=== PATIENT | female | born 1975 | race American Indian/Alaskan Native ===

== ENCOUNTER 2017-06-22 13:20 | Inpatient (IN) | payer MEDICAID, OTHER ==
[2017-06-22 14:42] LABS: HCG Qualitative,Urine Negative (Negative)
[2017-06-22 14:43] LABS: Bilirubin,Urine NEG (Negative); Blood,Urine NEG (Negative); Color,Urine Yellow (Yellow); Mucus,Urine FEW /HPF; Protein,Urine <15 mg/dL mg/dL (Negative); Urobilinogen,Urine < 2.0 mg/dL (<2.0)
[2017-06-22 15:13] LABS: Hematocrit 38.3 % (30.3-42.9); Hemoglobin 12.1 gm/dl (10.1-14.3); Mean Corpuscular HGB Conc 32 % (30-34); Mean Corpuscular Hemoglobin 28 pg (28-32); Mean Corpuscular Volume 89 fl (79-97); Platelet Count 255 K/mm3 (140-440); Red Blood Count 4.28 M/mm3 (3.65-5.03); Red Cell Distribution Width 16.5 % (13.2-15.2)
[2017-06-22] MEDS ORDERED: NORMODYNE IV ONE (15:24)
[2017-06-22 15:36] LABS: Alanine Aminotransferase 7 units/L (7-56); Albumin 4.4 g/dL (3.9-5); BUN/Creatinine Ratio 13; Blood Urea Nitrogen 12 mg/dL (7-17); Calcium 9.5 mg/dL (8.4-10.2); Hemolysis Index 6
[2017-06-22] MEDS ORDERED: APRESOLINE IV ONE (16:00)
[2017-06-22 16:05] LABS: Amphetamine Screen,Urine PRESUMPTIVE NEGATIVE; Benzodiazepines Screen,Urine PRESUMPTIVE NEGATIVE; Methadone Screen,Urine PRESUMPTIVE NEGATIVE; Opiate Screen,Urine PRESUMPTIVE NEGATIVE
--- NOTE | 2017-06-22 16:12 | Cat Scan Report ---
FINAL REPORT EXAM: CT HEAD/BRAIN WO CON HISTORY: [place], HTN, slurred speech TECHNIQUE: Standard unenhanced CT of the head at 5.0 millimeter axial increments. PRIORS: None. FINDINGS: The ventricular system is normal in size and configuration. There is no evidence for parenchymal volume loss. There is a remote lacunar infarct in the left internal limb of the internal capsule and the right thalamus. Mild small vessel ischemic changes are present in the right centrum semiovale posteriorly. There is no evidence for mass lesion, mass effect, midline shift, acute intracranial hemorrhage, or acute ischemia/ infarction. No evidence for acute skull fracture is seen. No abnormality in the overlying scalp soft tissues is seen. Visualized paranasal sinuses are clear. IMPRESSION: Small-vessel ischemic changes and remote lacunar infarcts. No acute intracranial process noted.
--- NOTE | 2017-06-22 16:24 | Emergency Department Report ---
ED Neuro Deficit HPI - General Chief Complaint: High BP Stated Complaint: HTN Time Seen by Provider: 06/22/17 15:08 Source: patient, EMS Mode of arrival: Ambulatory Limitations: No Limitations - History of Present Illness Initial Comments: 42 yo female with past medical history -induced hypertension presents to the hospital with complaints of ongoing headaches with left-sided numbness/ weakness with worsening speech and balance with ambulation since yesterday. Patient was diagnosed with hypertension during her in 2013 but has not followed up or been on medication since. She reports intermittent headaches for at least 3 months with left-sided arm and leg numbness that has been constant. Yesterday she developed abnormal speech at which she feels like she sounds drunk as well as stumbling when trying to ambulate. Patient complains of a left-sided 9/10 pulsating headache. She denies nausea, vomiting , blurred vision, chest pain, or shortness of breath. PMD: None - Related Data Home Medications: Home Medications Medication Instructions Recorded Confirmed Last Taken No Known Home Medications [No 06/22/17 06/22/17 Unknown Reported Home Medications] Allergies/Adverse Reactions: Allergies Allergy/AdvReac Type Severity Reaction Status Date / Time No Known Allergies Allergy Unverified 08/23/13 13:42 ED Review of Systems ROS: Stated complaint: HTN Other details as noted in HPI Comment: All other systems reviewed and negative ED Past Medical Hx - Past Medical History Hx Congestive Heart Failure: No Hx Diabetes: No Hx Asthma: No Hx COPD: No - Surgical History Past Surgical History?: No Additional Surgical History: - Social History Smoking Status: Current Every Day Smoker Substance Use Type: None, Marijuana - Medications Home Medications: Home Medications Medication Instructions Recorded Confirmed Last Taken Type No Known Home Medications [No 06/22/17 06/22/17 Unknown History Reported Home Medications] ED Neuro Physical Exam - General Limitations: No Limitations Suspected Stroke: Yes - NIHSS Assessment Interval: Baseline 1a. Level of Consciousness: alert 1b. LOC Questions: answers correctly 1c. LOC Commands: performs tasks correctly 2. Best Gaze: normal 3. Visual: no visual loss 4. Facial Palsy: normal symmetrical movement 5b. Motor Arm Right: no drift 5a. Motor Arm Left: no drift 6a. Motor Leg Left: drift 6b. Motor Leg Right: no drift 7. Limb Ataxia: absent 8. Sensory: mild/moderate sensory loss (left) 9. Best Language: no aphasia 10. Dysarthria: mild/moderate dysarthria 11. Extinction/Inattention: no abnormality Total Score: 3 Stroke Severity: Minor Stroke - Other Other exam information: General: No limitations, patient is alert in no acute distress Head exam: Atraumatic, normocephalic Eyes exam: Normal appearance, pupils equal reactive to light, extraocular movements intact ENT: Moist mucous membrane, normal oropharynx Neck exam: Normal inspection, full range of motion, no meningismus nontender Respiratory exam: Clear to auscultation bilateral, no wheezes, rales, crackles Cardiovascular: Normal rate and rhythm, normal heart sounds Abdomen: Soft, nondistended, and nontender, with normal bowel sounds, no rebound, or guarding Extremity: Full range of motion normal inspection no deformity Back: Normal Inspection, full range of motion, no tenderness Neurologic: Alert, oriented x3, see NIH stroke scale Psychiatric: normal affect, normal mood Skin: Warm, dry, intact ED Course Vital Signs 06/22/17 06/22/17 06/22/17 13:56 15:13 15:16 Temperature 98 F Pulse Rate 66 58 L Respiratory 18 12 Rate Blood Pressure 203/137 194/122 194/122 O2 Sat by Pulse 99 99 100 Oximetry 06/22/17 06/22/17 06/22/17 15:30 15:49 16:00 Temperature Pulse Rate 59 L 55 L Respiratory 11 L 11 L Rate Blood Pressure 201/123 201/123 201/119 O2 Sat by Pulse 99 100 100 Oximetry 06/22/17 06/22/17 06/22/17 16:15 16:30 16:45 Temperature Pulse Rate 70 69 77 Respiratory 17 13 15 Rate Blood Pressure 205/130 204/124 209/129 O2 Sat by Pulse 100 100 100 Oximetry 06/22/17 17:00 Temperature Pulse Rate 80 Respiratory 13 Rate Blood Pressure 196/123 O2 Sat by Pulse 99 Oximetry - Reevaluation(s) Reevaluation #1: 06/22/17 17:16 patient received IV hydralazine and without any improvement in her blood pressure. Cardene drip ordered. Aspirin ordered after negative CT for hemorrhage. Patient required admission to the hospital. - Lab Data Result diagrams: 06/22/17 14:46 06/22/17 14:46 Lab Results 06/22/17 06/22/17 06/22/17 Range/Units 14:21 14:46 14:46 WBC 5.0 (4.5-11.0) K/mm3 RBC 4.28 (3.65-5.03) M/mm3 Hgb 12.1 (10.1-14.3) gm/dl Hct 38.3 (30.3-42.9) % MCV 89 (79-97) fl MCH 28 (28-32) pg MCHC 32 (30-34) % RDW 16.5 H (13.2-15.2) % Plt Count 255 (140-440) K/mm3 Sodium 138 (137-145) mmol/L Potassium 3.5 L (3.6-5.0) mmol/L Chloride 100.6 (98-107) mmol/L Carbon Dioxide 25 (22-30) mmol/L Anion Gap 16 mmol/L BUN 12 (7-17) mg/dL Creatinine 0.9 (0.7-1.2) mg/dL Estimated GFR > 60 ml/min BUN/Creatinine Ratio 13 % Glucose 85 (65-100) mg/dL Calcium 9.5 (8.4-10.2) mg/dL Total Bilirubin < 0.20 (0.1-1.2) mg/dL AST 17 (5-40) units/L ALT 7 (7-56) units/L Alkaline Phosphatase 80 (35-129) units/L Troponin T < 0.010 (0.00-0.029) ng/mL Total Protein 8.1 (6.3-8.2) g/dL Albumin 4.4 (3.9-5) g/dL Albumin/Globulin Ratio 1.2 % Urine Color Yellow (Yellow) Urine Turbidity Clear (Clear) Urine pH 6.0 (5.0-7.0) Ur Specific [place] 1.010 (1.003-1.030) Urine Protein <15 mg/dl (Negative) mg/dL Urine Glucose (UA) Neg (Negative) mg/dL Urine Ketones Neg (Negative) mg/dL Urine Blood Neg (Negative) Urine Nitrite Neg (Negative) Ur Reducing Substances Not Reportable Urine Bilirubin Neg (Negative) Urine Ictotest Not Reportable Urine Urobilinogen < 2.0 (<2.0) mg/dL Ur Leukocyte Esterase Neg (Negative) Urine WBC (Auto) 1.0 (0.0-6.0) /HPF Urine RBC (Auto) 1.0 (0.0-6.0) /HPF U Epithel Cells (Auto) 3.0 (0-13.0) /HPF Urine Mucus Few /HPF Urine HCG, Qual Negative (Negative) Urine Opiates Screen Urine Methadone Screen Ur Barbiturates Screen Ur Phencyclidine Scrn Ur Amphetamines Screen U Benzodiazepines Scrn Urine Cocaine Screen U Marijuana (THC) Screen Drugs of Abuse Note 06/22/17 Range/Units Unknown WBC (4.5-11.0) K/mm3 RBC (3.65-5.03) M/mm3 Hgb (10.1-14.3) gm/dl Hct (30.3-42.9) % MCV (79-97) fl MCH (28-32) pg MCHC (30-34) % RDW (13.2-15.2) % Plt Count (140-440) K/mm3 Sodium (137-145) mmol/L Potassium (3.6-5.0) mmol/L Chloride (98-107) mmol/L Carbon Dioxide (22-30) mmol/L Anion Gap mmol/L BUN (7-17) mg/dL Creatinine (0.7-1.2) mg/dL Estimated GFR ml/min BUN/Creatinine Ratio % Glucose (65-100) mg/dL Calcium (8.4-10.2) mg/dL Total Bilirubin (0.1-1.2) mg/dL AST (5-40) units/L ALT (7-56) units/L Alkaline Phosphatase (35-129) units/L Troponin T (0.00-0.029) ng/mL Total Protein (6.3-8.2) g/dL Albumin (3.9-5) g/dL Albumin/Globulin Ratio % Urine Color (Yellow) Urine Turbidity (Clear) Urine pH (5.0-7.0) Ur Specific [place] (1.003-1.030) Urine Protein (Negative) mg/dL Urine Glucose (UA) (Negative) mg/dL Urine Ketones (Negative) mg/dL Urine Blood (Negative) Urine Nitrite (Negative) Ur Reducing Substances Urine Bilirubin (Negative) Urine Ictotest Urine Urobilinogen (<2.0) mg/dL Ur Leukocyte Esterase (Negative) Urine WBC (Auto) (0.0-6.0) /HPF Urine RBC (Auto) (0.0-6.0) /HPF U Epithel Cells (Auto) (0-13.0) /HPF Urine Mucus /HPF Urine HCG, Qual (Negative) Urine Opiates Screen Presumptive negative Urine Methadone Screen Presumptive negative Ur Barbiturates Screen Presumptive negative Ur Phencyclidine Scrn Presumptive negative Ur Amphetamines Screen Presumptive negative U Benzodiazepines Scrn Presumptive negative Urine Cocaine Screen Presumptive positive U Marijuana (THC) Screen Presumptive positive Drugs of Abuse Note Disclamer - EKG Data -: EKG Interpreted by [facility] EKG shows normal: sinus rhythm, axis (qrs 66), QRS complexes (qrsd 96), ST-T waves (no stem/t wave inv) Rate: normal (65) When compared to previous EKG there are: previous EKG unavailable - Radiology Data Radiology results: report reviewed ct head: IMPRESSION: Small-vessel ischemic changes and remote lacunar infarcts. No acute intracranial process noted. - Medical Decision Making Hypertension Chronic intermittent headache Ongoing left-sided numbness with weakness, abnormal speech, and abnormal gait since yesterday UDS positive for cocaine Patient requiring Cardene drip for better blood pressure control CT suggestive of lacunar infarcts without acute finding Patient will need admission to the hospital for blood pressure control and stroke workup - Differential Diagnosis intracranial hemorrhage, CVA, hypertensive emergency, migraine Critical Care Time: No Critical care attestation.: If time is entered above; I have spent that time in minutes in the direct care of this critically ill patient, excluding procedure time. ED Disposition Clinical Impression: Hypertensive emergency, Headache, Left-sided sensory deficit present, Left- sided weakness, Slurred speech, Cocaine abuse Disposition: OP ADMIT IP TO THIS HOSP Is pt being admited?: Yes Condition: Stable Time of Disposition: 17:19 (DR Xie/hosp)
[2017-06-22 16:29] LABS: Cannabinoid Screen,Urine PRESUMPTIVE POSITIVE; Cocaine Screen,Urine PRESUMPTIVE POSITIVE
[2017-06-22] MEDS ORDERED: ASPIRIN PO ONE (16:57)
[2017-06-22] MEDS ORDERED: ZOFRAN IV ONE (17:08)
[2017-06-22] MEDS ORDERED: ZOFRAN ONE (17:08)
--- NOTE | 2017-06-22 17:37 | History and Physical Report ---
History of Present Illness Chief complaint: my blood pressure is high History of present illness: 42 YO Female with HTN, Medication Noncompliance, Nicotine Dependence presents to ED for evaluation. Pt states that she has experienced headaches with left- sided numbness/weakness, slurred speech, unsteady gait over the past 3 months with worsening symptoms over the past 1 week. Pt states that she developed worsening slurred speech yesterday. Pt did not seek medical attention until 24 hours later. EMS notified, and upon arrival the patient was found to have symptoms consistent with acute CVA. Code Stroke was called, and the patient transported to [facility] for further care and evaluation. Pt seen and evaluated in ED and found to have evidence of Acute CVA. Pt also found to have cocaine dependence. Pt admitted to telemetry. Pt denies NVD, CP, Palpitations, Syncope, productive cough, leg swelling, calf pain, or recent ill contacts. Past History Past Medical History: hypertension Past Surgical History: Social history: smoking Family history: hypertension Medications and Allergies Allergies Allergy/AdvReac Type Severity Reaction Status Date / Time No Known Allergies Allergy Unverified 08/23/13 13:42 Home Medications Medication Instructions Recorded Confirmed Last Taken Type No Known Home Medications [No 06/22/17 06/22/17 Unknown History Reported Home Medications] Active Meds: Active Medications Nicardipine HCl 50 mg/ Sodium (Chloride) 250 mls @ 25 mls/hr IV TITR VAL; Protocol Review of Systems Constitutional: no weight loss, no weight gain, no chills Ears, nose, mouth and throat: no ear pain, no ear discharge, no tinnitis, no decreased hearing, no nose pain, no nasal congestion, no nasal discharge Breasts: no change in shape, no swelling, no mass Cardiovascular: no chest pain, no orthopnea, no palpitations, no rapid/ irregular heart beat, no edema, no syncope Respiratory: no cough, no cough with sputum, no excessive sputum, no hemoptysis , no shortness of breath Gastrointestinal: no nausea, no vomiting, no diarrhea Genitourinary Female: no pelvic pain, no flank pain, no menorrhagia, no dysuria , no urinary frequency, no urgency Rectal: no pain, no incontinence, no bleeding Musculoskeletal: no neck stiffness, no neck pain, no arm numbness/tingling, no low back pain, no shooting leg pain, no leg numbness/tingling, no redness of joints Integumentary: no rash, no pruritis, no redness, no sores, no wounds, no jaundice, no boils Neurological: no head injury, no transient paralysis, no paralysis, no weakness , no parathesias, no numbness, no tingling, no seizures Psychiatric: no anxiety, no memory loss, no change in sleep habits, no sleep disturbances, no insomnia, no hypersomnia, no change in appetite, no change in libido, no suicidal ideation Endocrine: no cold intolerance, no heat intolerance, no polyphagia, no excessive thirst, no polydipsia, no polyuria, no nocturia, no excessive sweating , no flushing Hematologic/Lymphatic: no easy bruising, no easy bleeding, no lymphadenopathy, no lymphedema Allergic/Immunologic: no urticaria, no allergic rhinitis, no wheezing, no persistent infections, no anaphylaxis, no angioedema Exam - Constitutional Vitals: Temp Pulse Resp BP Pulse Ox 98 F 80 13 196/123 99 06/22/17 13:56 06/22/17 17:00 06/22/17 17:00 06/22/17 17:00 06/22/17 17:00 General appearance: Present: mild distress - EENT Eyes: Present: PERRL ENT: hearing intact, clear oral mucosa - Neck Neck: Present: supple, normal ROM - Respiratory Respiratory effort: normal Respiratory: bilateral: CTA - Cardiovascular Heart Sounds: Present: S1 & S2. Absent: rub, click - Extremities Extremities: pulses symmetrical, No edema Peripheral Pulses: within normal limits - Abdominal General gastrointestinal: Present: soft, non-tender, non-distended, normal bowel sounds Female genitourinary: Present: normal - Integumentary Integumentary: Present: clear, warm, dry - Musculoskeletal Musculoskeletal: right sided weakness - Psychiatric Psychiatric: appropriate mood/affect, intact judgment & insight - Neurologic Neurologic: focal deficits, no gait normal Results - Labs CBC & Chem 7: 06/22/17 14:46 06/22/17 14:46 Labs: Abnormal lab results 06/22/17 06/22/17 Range/Units 14:46 14:46 RDW 16.5 H (13.2-15.2) % Potassium 3.5 L (3.6-5.0) mmol/L Assessment and Plan - Patient Problems (1) CVA (cerebral vascular accident) Current Visit: Yes Status: Acute Qualifiers: Precerebral and cerebral artery: middle cerebral artery Laterality of affected vessel: left Plan to address problem: Stroke protocol: CT head, MRI Brain, MRA Brain, Echo, Carotid Doppler, Antiplatelet therapy, monitor bp q shift, PT/OT/Speech therapy, BLE Duplex to evaluate for thrombosis. (2) Cocaine abuse Current Visit: Yes Status: Acute Plan to address problem: Pt couseled regarding discontinuation from cocaine use. (3) Hypertensive emergency Current Visit: Yes Status: Acute Plan to address problem: Monitor BP q shift, IV hydralazine prn, permissive hypertension overnight, goal systolic between 175-190. (4) DVT prophylaxis Current Visit: Yes Status: Acute Plan to address problem: SCD to BLE while in bed.
[2017-06-22] MEDS ORDERED: SODIUM CHLORIDE FLUSH SYRINGE 10 ML IV PRN (17:38)
[2017-06-22] MEDS ORDERED: REGLAN IV ONE (17:57)
[2017-06-22] MEDS ORDERED: CARDENE 50 MG in NACL 0.9% 250ML 230 ML IV SCH (18:00)
[2017-06-22] MEDS ORDERED: MILK OF MAGNESIA PO PRN (20:04)
[2017-06-22] MEDS ORDERED: DULCOLAX PR PRN (20:04)
[2017-06-22] MEDS ORDERED: TYLENOL ONE (20:58)
[2017-06-22] MEDS: TYLENOL PO PRN (21:02)
[2017-06-23] MEDS: APRESOLINE IV PRN ×2 (04:59→13:46)
[2017-06-23] MEDS: TYLENOL PO PRN ×5 (05:07→22:18)
[2017-06-23] MEDS ORDERED: ZOFRAN IV PRN (05:26)
[2017-06-23 07:01] LABS: Chol/HDL Ratio 3.1 %
[2017-06-23] MEDS ORDERED: ASPIRIN PO NR (09:50)
--- NOTE | 2017-06-23 13:26 | Magnetic Resonance Report ---
MRI OF THE BRAIN WITHOUT CONTRAST: HISTORY: Stroke PROCEDURE: Multiplanar, multisequence MR imaging of the brain without IV contrast was performed. FINDINGS: A 1.2 cm focus of diffusion restriction is identified in the right leal radiata on diffusion image 23. There are moderate nonspecific T2 signal abnormalities in the periventricular white matter and subcortical white matter bilaterally. These findings appear advanced for the patient's age. No evidence for hemorrhage, mass, or extra-axial fluid collection. The midline structures are central. The basal cisterns are patent. Normal ventricular size. The orbital cavities and sella turcica demonstrate no abnormality. The visualized paranasal sinuses and mastoid air cells are well aerated. IMPRESSION: 1.2 cm subacute ischemic infarct in the right leal radiata. Nonspecific chronic white matter changes.
--- NOTE | 2017-06-23 13:27 | Magnetic Resonance Report ---
MRA HEAD WITHOUT CONTRAST HISTORY: Stroke. [id number] imaging with MIP reformations of the [place] of [place] is submitted. The arteries appear widely patent and free of hemodynamically significant stenosis, aneurysm or dissection. IMPRESSION: Unremarkable MRA head.
[2017-06-23] MEDS: PROCARDIA XL PO SCH (13:47)
[2017-06-23] MEDS ORDERED: DIOVAN PO SCH (14:00)
[2017-06-23 14:32] LABS: Calcium 10.1 mg/dL (8.4-10.2)
--- NOTE | 2017-06-23 14:33 | Progress Note ---
Assessment and Plan Assessment and plan: Patient is a 42 year old woman who presented to ED with complaints of headaches with left-sided numbness/weakness, slurred speech, unsteady gait over the past 3 months with worsening symptoms over the past 1 week. CVA (cerebral vascular accident) MRI Brain shows 1.2 cm subacute ischemic infarct in the right leal radiata. Nonspecific chronic white matter changes. MRA Brain unremarkable Carotid Doppler <50 stenosis bilaterally, aspirin, PT/OT/Speech therapy neurologist consulted Cocaine abuse Pt counseled regarding discontinuation from cocaine use. Hypertensive urgency continue monitoring BP, PO antihypertensives initiated, IV hydralazine prn, Hyperlipidemia initiated statin therapy Hypokalemia supplemented DVT prophylaxis SCD to BLE while in bed. History Interval history: Patient seen and examined with family members at bedside. She complains of headache, denies SOB, [place], this isn't the worst headache of her life. Labs and chart notes reviewed. Hospitalist Physical - Physical exam Narrative exam: General appearance: Present: no acute distress, well-nourished - EENT Eyes: Present: PERRL, EOM intact ENT: hearing intact, clear oral mucosa - Neck Present: supple, normal ROM - Respiratory Respiratory effort: normal Respiratory: bilateral: CTA - Cardiovascular Rhythm: regular Heart Sounds: Present: S1 & S2 - Extremities Extremities: no ischemia, No edema - Abdominal General gastrointestinal: soft, non-tender, non-distended - Integumentary Integumentary: Present: clear, warm, dry - Psychiatric Psychiatric: appropriate mood/affect, intact judgment & insight, cooperative - Neurologic Neurologic: CNII-XII intact, moves all extremities - Constitutional Vitals: Temp Pulse Resp BP Pulse Ox 98.6 F 86 18 200/110 95 06/23/17 09:33 06/23/17 13:46 06/23/17 09:33 06/23/17 13:46 06/23/17 09:33 Results - Labs CBC & Chem 7: 06/22/17 14:46 06/23/17 14:02 Labs: Laboratory Last Values WBC 5.0 K/mm3 (4.5-11.0) 06/22/17 14:46 RBC 4.28 M/mm3 (3.65-5.03) 06/22/17 14:46 Hgb 12.1 gm/dl (10.1-14.3) 06/22/17 14:46 Hct 38.3 % (30.3-42.9) 06/22/17 14:46 MCV 89 fl (79-97) 06/22/17 14:46 MCH 28 pg (28-32) 06/22/17 14:46 MCHC 32 % (30-34) 06/22/17 14:46 RDW 16.5 % (13.2-15.2) H 06/22/17 14:46 Plt Count 255 K/mm3 (140-440) 06/22/17 14:46 D-Dimer 211.05 ng/mlDDU (0-234) 06/22/17 17:44 Sodium 138 mmol/L (137-145) 06/22/17 14:46 Potassium 3.5 mmol/L (3.6-5.0) L 06/22/17 14:46 Chloride 100.6 mmol/L (98-107) 06/22/17 14:46 Carbon Dioxide 25 mmol/L (22-30) 06/22/17 14:46 Anion Gap 16 mmol/L 06/22/17 14:46 BUN 12 mg/dL (7-17) 06/22/17 14:46 Creatinine 0.9 mg/dL (0.7-1.2) 06/22/17 14:46 Estimated GFR > 60 ml/min 06/22/17 14:46 BUN/Creatinine Ratio 13 % 06/22/17 14:46 Glucose 85 mg/dL (65-100) 06/22/17 14:46 Calcium 9.5 mg/dL (8.4-10.2) 06/22/17 14:46 Total Bilirubin < 0.20 mg/dL (0.1-1.2) 06/22/17 14:46 AST 17 units/L (5-40) 06/22/17 14:46 ALT 7 units/L (7-56) 06/22/17 14:46 Alkaline Phosphatase 80 units/L (35-129) 06/22/17 14:46 Troponin T < 0.010 ng/mL (0.00-0.029) 06/22/17 14:46 Total Protein 8.1 g/dL (6.3-8.2) 06/22/17 14:46 Albumin 4.4 g/dL (3.9-5) 06/22/17 14:46 Albumin/Globulin Ratio 1.2 % 06/22/17 14:46 Triglycerides 57 mg/dL (2-149) 06/23/17 05:30 Cholesterol 217 mg/dL (50-199) H 06/23/17 05:30 LDL Cholesterol Direct 150 mg/dL (50-130) H 06/23/17 05:30 HDL Cholesterol 70 mg/dL (40-59) H 06/23/17 05:30 Cholesterol/HDL Ratio 3.10 % 06/23/17 05:30 Urine Color Yellow (Yellow) 06/22/17 14:21 Urine Turbidity Clear (Clear) 06/22/17 14:21 Urine pH 6.0 (5.0-7.0) 06/22/17 14:21 Ur Specific [place] 1.010 (1.003-1.030) 06/22/17 14:21 Urine Protein <15 mg/dl mg/dL (Negative) 06/22/17 14:21 Urine Glucose (UA) Neg mg/dL (Negative) 06/22/17 14:21 Urine Ketones Neg mg/dL (Negative) 06/22/17 14:21 Urine Blood Neg (Negative) 06/22/17 14:21 Urine Nitrite Neg (Negative) 06/22/17 14:21 Ur Reducing Substances Not Reportable 06/22/17 14:21 Urine Bilirubin Neg (Negative) 06/22/17 14:21 Urine Ictotest Not Reportable 06/22/17 14:21 Urine Urobilinogen < 2.0 mg/dL (<2.0) 06/22/17 14:21 Ur Leukocyte Esterase Neg (Negative) 06/22/17 14:21 Urine WBC (Auto) 1.0 /HPF (0.0-6.0) 06/22/17 14:21 Urine RBC (Auto) 1.0 /HPF (0.0-6.0) 06/22/17 14:21 U Epithel Cells (Auto) 3.0 /HPF (0-13.0) 06/22/17 14:21 Urine Mucus Few /HPF 06/22/17 14:21 Urine HCG, Qual Negative (Negative) 06/22/17 14:21 Urine Opiates Screen Presumptive negative 06/22/17 Unknown Urine Methadone Screen Presumptive negative 06/22/17 Unknown Ur Barbiturates Screen Presumptive negative 06/22/17 Unknown Ur Phencyclidine Scrn Presumptive negative 06/22/17 Unknown Ur Amphetamines Screen Presumptive negative 06/22/17 Unknown U Benzodiazepines Scrn Presumptive negative 06/22/17 Unknown Urine Cocaine Screen Presumptive positive 06/22/17 Unknown U Marijuana (THC) Screen Presumptive positive 06/22/17 Unknown Drugs of Abuse Note Disclamer 06/22/17 Unknown
[2017-06-23] MEDS: DIOVAN PO SCH ×2 (15:07→22:18)
[2017-06-24] MEDS: TYLENOL PO PRN ×2 (02:20→09:16)
[2017-06-24] MEDS: PROCARDIA XL PO SCH (09:17)
[2017-06-24] MEDS ORDERED: ASPIRIN PO SCH (10:00)
--- NOTE | 2017-06-24 10:20 | History and Physical Report ---
History of Present Illness Date of examination: 06/24/17 Date of admission: 06/22/17 20:04 Chief complaint: FOCUSED NEUROLOGY CONSULT CC: I am asked to see this 42 AA Ffor evaluation of stroke HPI: Hs revewed in chart and with patient. She was admitted 06/22 with sx of slurred speech, abn gait and left arm and leg weakness, all occurring on the day of admission and noted after work. NIHSS was 3. Admission BP was 203/137, which was rxd. she was not felt to be a tPA candidate. An MRI showed a small DWI pos lesion in the right leal radiata. Echo and C-doppler unrevealing of sig abn. Patient has recovered all arm function, speech is no longer slurred, and she walks ok. The patient has an hx of episodic headaches and her mother and grandmother also had headaches they all had to lie down with. No prior episodes of unilateral dysesthesias, n or v, or visual sx. Her headaches when she gets them are trobbing and pounding and are helped by [employer] or [employer]. she has eight children, ranging in age from 3 to 23. Her UDS was pos for cocaine. She also has an hx of some numbness in the left arm over the past three months, but no arm weakness. 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 This numbness has also now completely resolved. ROS: an 11 point ROS is negative NEURO EXAM: MS: alert, oriented x 3, speech fluent and clear and without errors, follows all commands quickly and accurately CN II - 12: nl. pupils both 4 mm diam and react to bright light illum, EOM full without nystag, no slurring of speech, sl left UMN facial deficit but speech is not slurred. MOT: nl strength all four extrem pros and dist SENS: in tact to light touch throughout CEREB: fnf nl bilat DTRs: 1+ and symm all four extrem prox and dist, grea toes downgoing to plantar stim GAIT: nl DX IMP: 1. Right lacunar cerebral infarct (right MCA dist) with mild left hemiparesis , largely resolved. 2. Hx migraine with pos fam hx of same 3. HTN RECC: 1. Neuro w/u complete. Well done. 2. Call as needed. Emmanuel Velasquez MD Past History Past Medical History: hypertension Past Surgical History: Social history: smoking Family history: hypertension Medications and Allergies Allergies Allergy/AdvReac Type Severity Reaction Status Date / Time No Known Allergies Allergy Unverified 08/23/13 13:42 Home Medications Medication Instructions Recorded Confirmed Last Taken Type No Known Home Medications [No 06/22/17 06/22/17 Unknown History Reported Home Medications] Active Meds: Active Medications Acetaminophen (Tylenol) 650 mg PO Q4H PRN PRN Reason: Pain, Mild (1-3) Last Admin: 06/24/17 09:16 Dose: 650 mg Aspirin (Aspirin) 325 mg PO QDAY [facility] Last Admin: 06/24/17 09:18 Dose: 325 mg Atorvastatin Calcium (Lipitor) 40 mg PO QHS [facility] Last Admin: 06/23/17 22:17 Dose: 40 mg Bisacodyl (Dulcolax) 10 mg GA QDAY PRN PRN Reason: Constipation Hydralazine HCl (Apresoline) 10 mg IV Q4H PRN PRN Reason: Blood Pressure Last Admin: 06/23/17 13:46 Dose: 10 mg Magnesium Hydroxide (Milk Of Magnesia) 30 ml PO Q4H PRN PRN Reason: Constipation Nifedipine (Procardia Xl) 90 mg PO QDAY [facility] Last Admin: 06/24/17 09:17 Dose: 90 mg Ondansetron HCl (Zofran) 4 mg IV Q4H PRN PRN Reason: Nausea And Vomiting Last Admin: 06/23/17 06:14 Dose: 4 mg Sodium Chloride (Sodium Chloride Flush Syringe 10 Ml) 10 ml IV PRN PRN PRN Reason: LINE FLUSH Last Admin: 06/24/17 09:24 Dose: 10 ml Valsartan (Diovan) 80 mg PO BID [facility] Last Admin: 06/23/17 22:18 Dose: 80 mg Physical Examination - Vital Signs Vital Signs: Vital Signs Temp Pulse Resp BP Pulse Ox 98 F 66 18 203/137 99 06/22/17 13:56 06/22/17 13:56 06/22/17 13:56 06/22/17 13:56 06/22/17 13:56 Results - Laboratory Findings CBC and BMP: 06/22/17 14:46 06/23/17 14:02 Abnormal Lab Findings: Abnormal Labs 06/22/17 06/22/17 06/23/17 14:46 14:46 05:30 RDW 16.5 H Potassium 3.5 L Glucose Cholesterol 217 H LDL Cholesterol Direct 150 H HDL Cholesterol 70 H 06/23/17 14:02 RDW Potassium 3.3 L Glucose 145 H Cholesterol LDL Cholesterol Direct HDL Cholesterol
[2017-06-24 13:42] LABS: BUN/Creatinine Ratio 15; Blood Urea Nitrogen 15 mg/dL (7-17); Calcium 9.7 mg/dL (8.4-10.2); Hemolysis Index 0
--- NOTE | 2017-06-24 16:13 | Discharge Summary ---
Providers - Providers Date of Admission: 06/22/17 20:04 Date of discharge: 06/24/17 Attending physician: MAINE PASCUAL MD 06/22/17 17:38 Occupational Therapy Evaluate and Treat [CONS] Routine Comment: Reason For Exam: Neuro deficits Physical Therapy Evaluation and Treat [CONS] Routine Comment: Reason For Exam: Neuro deficits Speech Therapy Evaluation and Treat [CONS] Routine Reason For Exam: swallow eval 06/22/17 20:04 Occupational Therapy Evaluate and Treat [CONS] Routine Comment: Reason For Exam: Neuro deficits Physical Therapy Evaluation and Treat [CONS] Routine Comment: Reason For Exam: Neuro deficits 06/23/17 09:51 Consult to Physician [CONS] Routine Comment: Consulting Provider: CATALINA FERNANDEZ Physician Instructions: Reason For Exam: CVA Primary care physician: EMERGENCY DEPARTMENT NURSE Hospitalization Condition: Stable Hospital course: Patient is a 42 year old woman who presented to ED with complaints of headaches with left-sided numbness/weakness, slurred speech, unsteady gait over the past 3 months with worsening symptoms over the past 1 week. Patient was found to have hypertensive emergency on admission. MRI Brain shows 1.2 cm subacute ischemic infarct in the right leal radiata. Nonspecific chronic white matter changes. Patient was initiated on aspirin, statin. Antihypertensives were optimized. Patients's urine drug screen was positive for cocaine which is likely the underlying etiology of patient's CVA and hypertension. Patient was counseled regarding discontinuation of cocaine use and life-threatening adverse effects of continuing this practice. Patient was clinically stable for discharge with home and was instructed to follow up with her primary care provider within 1 week of discharge. Discharge diagnoses CVA Cocaine abuse Hypertension Hyperlipidemia hypokalemia Disposition: DC-01 TO HOME OR SELFCARE Time spent for discharge: 32 minutes Core Measure Documentation - Palliative Care Palliative Care/ Comfort Measures: Not Applicable - Core Measures Any of the following diagnoses?: stroke - Stroke Discharge Requirements Statin for LDL = or >70 mg/dl on DC: Yes Anticoag for atrial fib/atrial flutter: Not Applicable Antithrombotic for ischemic stroke: Yes Exam - Physical Exam Narrative exam: General appearance: Present: no acute distress, well-nourished - EENT Eyes: Present: PERRL, EOM intact ENT: hearing intact, clear oral mucosa - Neck Present: supple, normal ROM - Respiratory Respiratory effort: normal Respiratory: bilateral: CTA - Cardiovascular Rhythm: regular Heart Sounds: Present: S1 & S2 - Extremities Extremities: no ischemia, No edema - Abdominal General gastrointestinal: soft, non-tender, non-distended - Integumentary Integumentary: Present: clear, warm, dry - Psychiatric Psychiatric: appropriate mood/affect, intact judgment & insight, cooperative - Neurologic Neurologic: CNII-XII intact, moves all extremities - Constitutional Vitals: Temp Pulse Resp BP Pulse Ox 98.5 F 76 20 119/77 94 06/24/17 05:51 06/24/17 12:49 06/24/17 05:51 06/24/17 05:51 06/24/17 05:51 Plan Diet: low fat, low cholesterol, low salt Follow up with: PRIMARY CARE, [Primary Care Provider] - 7 Days Prescriptions: AtorvaSTATin [Lipitor] 40 mg PO QHS #30 tablet Aspirin [Aspirin TAB] 325 mg PO QDAY #30 tablet NIFEdipine XL [Procardia Xl] 90 mg PO QDAY #30 tablet Valsartan [Diovan] 80 mg PO BID #60 tablet
[2017-06-24 16:54] VITALS: BP 126/95
--- NOTE | 2017-06-26 10:13 | Vascular Lab Report ---
CAROTID DUPLEX STUDY: RIGHT PSVEDV CCA [id number] CCA DIST:[id number] ICA PROX:[id number] ICA MID:[id number] ICA DIST:[id number] ECA: [id number] VERT: 84 30 LEFT PSVEDV CCA [id number] CCA DIST:[id number] ICA PROX:[id number] ICA MID:[id number] ICA DIST:[id number] ECA: 76 22 VERT: 52 18 REASON FOR EXAM: Stroke. COMMENTS ON THE RIGHT: Doppler frequency analysis is consistent with 16 to 49 percent diameter reduction of the internal carotid artery. Minimal amount of plaque is seen. The common carotid artery is patent. The external carotid artery is patent. The vertebral artery has antegrade flow. COMMENTS ON THE LEFT: Doppler frequency analysis is consistent with 16 to 49 percent diameter reduction of the internal carotid artery. Minimal amount of plaque is seen. The common carotid artery is patent. The external carotid artery is patent. The vertebral artery has antegrade flow. IMPRESSION: Less than 50% diameter reduction in the internal carotid arteries bilaterally.
== END 2017-06-24 18:28 | disposition home or self-care (01) | DRG 65 ==
LOC: ED 13:20 → 4A 20:04
PROVIDERS: ADMIT Internal Medicine; ATTEND Internal Medicine
DX: I63.9 Cerebral infarction, unspecified (principal); F14.20 Cocaine dependence, uncomplicated; I16.1 Hypertensive emergency; G81.94 Hemiplegia, unspecified affecting left nondominant side; F17.200 Nicotine dependence, unspecified, uncomplicated; R29.701 NIHSS score 1; I16.0 Hypertensive urgency; E78.5 Hyperlipidemia, unspecified; E87.6 Hypokalemia; Z71.51 Drug abuse counseling and surveillance of drug abuser; Z82.49 Family history of ischemic heart disease and other diseases of the circulatory system
CPT/HCPCS: 36415; 70450; 70544; 70551; 80048; 80053; 80061; 80307; 81001; 81025; 84484; 85027; 85379; 93005; 93010; 93306; 93880; 93970; 96374; 96375; A9270-GY; J0360; J2405; J2765; J7050